=== PATIENT | female | born 1935 | race Two or more races ===

== ENCOUNTER 2023-03-07 09:52 | Inpatient (IN) | payer OTHER ==
[~2023-03-07] VITALS: Ht 152.4 cm; Wt 67.1 kg
[2023-03-07 14:00] VITALS: BP 172/84
[2023-03-07 14:20] VITALS: BP 142/82
[2023-03-07] MEDS ORDERED: MORPHINE SULFATE INJ 2 MG/ml SYRG IV PRN (14:30)
[2023-03-07] MEDS ORDERED: NITROGLYCERIN 0.4 MG SL TAB SL PRN (14:30)
[2023-03-07] MEDS ORDERED: ACETAMINOPHEN 500 MG TAB PO PRN (14:30)
[2023-03-07] MEDS ORDERED: ONDANSETRON HCL 4 MG/2 ML VIAL IV PRN (14:30)
[2023-03-07 14:53] VITALS: BP 172/84
[2023-03-07] MEDS ORDERED: BRIM0.1S3 OP (15:08)
[2023-03-07] MEDS ORDERED: NETA0.02 OP (15:08)
[2023-03-07] MEDS ORDERED: DORZ2SOL18 EACHEYE (15:08)
[2023-03-07] MEDS ORDERED: LATA0.008 EACHEYE (15:08)
[2023-03-07] MEDS: FAMOTIDINE (10MG/ML) 2ML VL IV SCH ×2 (15:23→21:19)
[2023-03-07 17:00] VITALS: BP 115/66
[2023-03-07 20:00] VITALS: BP 145/82
[2023-03-07 21:53] VITALS: BP 145/82
[2023-03-08 05:00] VITALS: BP 150/78
[2023-03-08 06:42] LABS: Basophils # (auto) 0 10 ^3/uL (0-0.2); Basophils % (auto) 0.5 % (0.0-2.0); Eosinophils # (auto) 0.4 10 ^3/uL (0-0.8); Eosinophils % (auto) 4.6 % (0.0-7.0); Hematocrit 40.4 % (36.0-46.0); Hemoglobin 13.5 g/dL (12.2-16.2); Lymphocytes # (auto) 1.5 10 ^3/uL (0.4-5.4); Lymphocytes % (auto) 19.8 % (10.0-50.0); Mean Corpuscular Hemoglobin 30.2 pg (28.0-32.0); Mean Corpuscular Hgb Conc. 33.5 g/dL (32.0-36.0); Mean Corpuscular Volume 90.2 fL (80.0-100.0); Monocytes # (auto) 0.5 10 ^3/uL (0-1.3); Monocytes % (auto) 6.1 % (0.0-12.0); Neutrophils # (auto) 5.2 10 ^3/uL (1.6-8.6); Red Blood Cells 4.48 10^6/uL (4.0-5.20); Red Cell Distribution Width 14.2 % (11.8-14.3); White Blood Cell 7.6 10^3/uL (4.4-10.8)
[2023-03-08 06:49] LABS: Potassium 4.2 mmol/L (3.5-5.1)
[2023-03-08 06:56] LABS: INR 0.98 (0.9-1.15)
[2023-03-08 07:03] LABS: BUN/Creatinine Ratio 24.3 (10.0-20.0); Calcium 9.6 mg/dL (8.5-10.1)
[2023-03-08 08:00] VITALS: BP 136/78
[2023-03-08] MEDS ORDERED: ADENOSINE 56 MG in GIVE UN-DILUTED 0 ML IV STA (08:57)
[2023-03-08 09:00] VITALS: BP 136/78
[2023-03-08] MEDS ORDERED: ENOXAPARIN SOD 40 MG/0.4 ML SYRINGE SC SCH (10:00)
[2023-03-08] MEDS: FAMOTIDINE (10MG/ML) 2ML VL IV SCH (11:27)
[2023-03-08 13:00] VITALS: BP 146/82
== END 2023-03-08 16:09 | disposition left against medical advice (07) | DRG 313 ==
LOC: TELE-WESTW 13:55
PROVIDERS: ADMIT Hospitalist; ATTEND Hospitalist
DX: R07.9 Chest pain, unspecified (principal); I10 Essential (primary) hypertension; Z53.29 Procedure and treatment not carried out because of patient's decision for other reasons; Z80.3 Family history of malignant neoplasm of breast; Z82.49 Family history of ischemic heart disease and other diseases of the circulatory system; Z88.5 Allergy status to narcotic agent
CPT/HCPCS: 36415; 78452; 80048; 84484; 85025; 85610; 85730; 93005; 93017; 93306; G0378; J0153; J3490